=== PATIENT | male | born 1930 ===

== ENCOUNTER 2017-09-27 11:52 | Observation (INO) | payer OTHER ==
[2017-09-27 11:55] VITALS: BMI 25.4
--- NOTE | 2017-09-27 13:43 | CT ---
PROCEDURE: CT HEAD WITHOUT CONTRAST. HISTORY: fall with lac to left forehead COMPARISON: None available. TECHNIQUE: Axial computed tomography images were obtained through the head/brain without intravenous contrast. Radiation dose: Total exam DLP = 799.21 mGy-cm. This CT exam was performed using one or more of the following dose reduction techniques: Automated exposure control, adjustment of the mA and/or kV according to patient size, and/or use of iterative reconstruction technique. FINDINGS: HEMORRHAGE: Although there is no fracture throughout the calvarium or the skullbase including left frontal and temporal bones, hyperdensity at the left frontal subarachnoid or possibly subdural spaces appreciated minimally. Additional hemorrhage is appreciated in a definitive subarachnoid pattern at the mid to posterior left temporoparietal distribution. There is no mass effect at this time. No right-sided intracranial hemorrhage is evident. There is a borderline 2 mm rightward shift although this may be pre-existent to the hemorrhage as there is no definitive edema appreciated by standard CT criteria throughout the left cerebral hemisphere. Basilar cisterns are widely patent. BRAIN: Limited diffuse cerebral atrophy is appreciated with trace periventricular chronic microangiopathy related lucency. Posterior fossa contents appear nonfocal including the brainstem. Corticomedullary differentiation is adequate, diffusely. VENTRICLES: Unremarkable. No hydrocephalus. CALVARIUM: Unremarkable. PARANASAL SINUSES: Unremarkable as visualized. No significant inflammatory changes. MASTOID AIR CELLS: Unremarkable as visualized. No inflammatory changes. OTHER FINDINGS: None. IMPRESSION: Left temporoparietal and trace left frontal subarachnoid hemorrhage is identified with left frontal hemorrhage potentially being subdural though the former is favored. No parenchymal edema is identified. Age-appropriate age related neuro degenerative findings as discussed above. Minimal rightward midline shift may be pre-existing the traumatic event. Follow-up CT is advised. Discussed with Dr. Benz with written down and read back verification, 09/18/2017 1:25 p.m..
[2017-09-27 14:27] LABS: BASO # 0.1 K/uL (0.0-0.2); BASO % 0.7 % (0.0-2.0); EOS # 0.2 K/uL (0.0-0.7); EOS % 1.9 % (0.0-4.0); LYMPH # 0.8 K/uL (1.0-4.3); LYMPH % 9.3 % (20.0-40.0); MEAN CORPUSCULAR HEMOGLOBIN 31.6 pg (27.0-31.0); MEAN CORPUSCULAR HGB CONC 32.6 g/dL (33.0-37.0); MEAN PLATELET VOLUME 10.4 fl (7.2-11.7); MONO # 0.5 K/uL (0.0-0.8); MONO % 5.6 % (0.0-10.0); NEUT # 7.5 K/uL (1.8-7.0); NEUT % 82.5 % (50.0-75.0); PLATELET COUNT 165 K/uL (130-400); RED CELL DISTRIBUTION WIDTH 13.7 % (11.5-14.5); WHITE BLOOD COUNT 9.1 K/uL (4.8-10.8)
--- NOTE | 2017-09-27 14:34 | ED PDOC ---
HPI: Trauma/Fall - HPI Time Seen by Provider: 09/27/17 12:05 Chief Complaint (Nursing): Trauma History Per: Patient (brought by EMS after tripping on someone's cane, fell and hit his head on the left side with resultant superficial laceration on the left forehead. Patient denies LOC. No reports of LoC. Patient also has superficial abrasions on the left elbow and left hand. He is able to move everything without restriction.) Past Medical History Reviewed: Historical Data, Nursing Documentation, Vital Signs Vital Signs: Last Vital Signs Temp 97.8 F 09/27/17 11:55 Pulse 93 H 09/27/17 11:55 Resp 20 09/27/17 11:55 BP 156/77 H 09/27/17 11:55 Pulse Ox 97 09/27/17 11:55 - Medical History PMH: HTN - Family History Family History: States: No Known Family Hx - Living Arrangements Living Arrangements: With Family - Immunization History Hx Tetanus Toxoid Vaccination: No Hx Influenza Vaccination: Yes (2016) Hx Pneumococcal Vaccination: Yes (2016) - Allergies Allergies/Adverse Reactions: Allergies Allergy/AdvReac Type Severity Reaction Status Date / Time iodine Allergy Verified 09/27/17 12:10 Review of Systems ROS Statement: Except As Marked, All Systems Reviewed And Found Negative Constitutional: Negative for: Fever, Chills ENT: Negative for: Ear Discharge, Nose Discharge, Nose Congestion Cardiovascular: Negative for: Chest Pain Respiratory: Negative for: Cough, Shortness of Breath Gastrointestinal: Negative for: Nausea, Vomiting Musculoskeletal: Negative for: Neck Pain, Shoulder Pain, Back Pain Neurological: Negative for: Weakness, Numbness, Incoordination, Change in Speech , Confusion, Seizures, Altered Mental Status, Headache, Dizziness, Other Physical Exam - Reviewed Nursing Documentation Reviewed: Yes Vital Signs Reviewed: Yes - Physical Exam Appears: Positive for: Well, Non-toxic, No Acute Distress Skin: Positive for: Normal Color (superficial lacerations (1.5 cm left forearm, 1.5 cm left forearm)), Warm Eye Exam: Positive for: EOMI, Normal appearance, PERRL ENT: Positive for: Normal ENT Inspection Neck: Positive for: Normal, Painless ROM Cardiovascular/Chest: Positive for: Regular Rate, Rhythm Respiratory: Positive for: CNT, Normal Breath Sounds Gastrointestinal/Abdominal: Positive for: Normal Exam, Soft Back: Positive for: Normal Inspection Extremity: Positive for: Normal ROM Neurologic/Psych: Positive for: Alert, Oriented - Laboratory Results Result Diagrams: 09/27/17 14:18 - ECG O2 Sat by Pulse Oximetry: 97 Medical Decision Making Medical Decision Making: case d/w Dr. Little. Repeat CT in 6-12 hours. will admit for observation on telemetry given patient's age and the extent of external bruising. Patietn of Benoit Vargas. Case d/w Dr. Hilton. Procedures - Laceration/Wound Repair Head Wound's Depth, Shape: superficial Wound Explored: no foreign body removed Betadine Prep?: Yes Wound Debrided: minimal Wound Repaired With: Skin adhesive Wound Complexity: Simple Disposition - Clinical Impression Clinical Impression: Epidural hematoma - Patient ED Disposition Is Patient to be Admitted: Yes Doctor Will See Patient In The: Hospital - Disposition Disposition: Transfer of Care Disposition Time: 14:00 Condition: STABLE - Pt Status Changed To: Hospital Disposition Of: Observation - POA Present On Arrival: Falls Or Trauma
[2017-09-27 15:01] LABS: PARTIAL THROMBOPLASTIN TIME 28.4 Seconds (25.6-37.1); PROTHROMBIN TIME 10.9 Seconds (9.8-13.1)
[2017-09-27 15:24] LABS: ANISOCYTOSIS SLIGHT; EOSINOPHIL 2 % (0-7); LYMPHOCYTE 6 % (20-50); MONOCYTE 7 % (0-10); NEUTROPHIL 85 % (42-75); OVALOCYTES SLIGHT; PLATELET ESTIMATE NORMAL (NORMAL); TEARDROP CELLS SLIGHT; TOTAL CELLS COUNTED 100
--- NOTE | 2017-09-27 15:35 | CP.PCM.HP ---
Addendum entered and electronically signed by Yolanda Pagan MD 09/27/17 16 :34: confirmed with patients : patient takes Metoprolol 50mg PO QD, Telmisartan 40 mg PO QD -denies hx tobacco/Etoh or drugs Original Note: <Yolanda Pagan - Last Filed: 09/27/17 16:18> History of Present Illness - History of Present Illness History of Present Illness: 86 yr old M brought to ED via EMS with complaint of left eyebrow laceration and swellign/bruising after falling in the street. 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 Patient reports he was walking and accidentally tripped over someone elses' cane and hit the concrete sidewalk with the left side of his face. Denies loss of consciousness, chest pain, dizziness, weakness, nausea, vomiting. At baseline patient reports he ambulates without difficulty, has no other complaints. Patient reports he lives in [place] and is scheduled to fly there saturday. PMD: Benoit Strauss PMHx: HTN SurgHx: colon resection for benign colon mass (per patient) FMHx: noncontributory ED course: vital signs stable -CBC, coags and CMP wnl -CT head: left temporoparietal and trace left frontal subarachnoid hemorrhage with left frontal hemorrhage potentially being subdural though the former is favored. Followup CT is advised -case consulted with Neurosurgery: Dr. Little, recommended repeat CT head in 6- 12 hrs Present on Admission - Present on Admission Any Indicators Present on Admission: No History of DVT/PE: No History of Uncontrolled Diabetes: No Urinary Catheter: No Decubitus Ulcer Present: No History Surgical Site Infection Following: None Review of Systems - Constitutional Constitutional: absent: Chills - EENT Eyes: absent: Change in Vision Ears: absent: Ear Pain Nose/Mouth/Throat: absent: Nasal Congestion, Sore Throat - Cardiovascular Cardiovascular: absent: Chest Pain, Syncope - Respiratory Respiratory: absent: Cough, Dyspnea, Hemoptysis - Gastrointestinal Gastrointestinal: absent: Diarrhea, Nausea, Vomiting - Genitourinary Genitourinary: absent: Difficulty Urinating, Dysuria - Musculoskeletal Musculoskeletal: absent: Arthralgias, Back Pain - Integumentary Integumentary: Wounds (left eye laceration, swelling and bruising) - Neurological Neurological: absent: Confusion, Weakness - Psychiatric Psychiatric: absent: Anxiety - Hematologic/Lymphatic Hematologic: absent: Easy Bleeding, Easy Bruising Past Patient History - Past Social History Smoking Status: Never Smoked - CARDIAC Hx Hypertension: Yes - GASTROINTESTINAL Other/Comment: colon ca - PSYCHIATRIC Hx Substance Use: No - SURGICAL HISTORY Other/Comment: colon surgery 12/16 Meds Allergies/Adverse Reactions: Allergies Allergy/AdvReac Type Severity Reaction Status Date / Time iodine Allergy Verified 09/27/17 12:10 Physical Exam - Constitutional Appears: No Acute Distress - Head Exam Head Exam: absent: ATRAUMATIC Additional comments: left forehead superficial laceration-skin adhesive covering - Eye Exam Eye Exam: Periorbital swelling (and bruising-left), Periorbital tenderness. 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 Negative for: Lymphadenopathy - Respiratory Exam Respiratory Exam: Clear to Auscultation Bilateral, NORMAL BREATHING PATTERN - Cardiovascular Exam Cardiovascular Exam: REGULAR RHYTHM, +S1, +S2 - GI/Abdominal Exam GI & Abdominal Exam: Normal Bowel Sounds, Soft (obese). absent: Tenderness - Extremities Exam Extremities exam: Positive for: full ROM, normal capillary refill, pedal pulses present. Negative for: calf tenderness, pedal edema Additional comments: left knee abrasion, no swelling - Neurological Exam Neurological exam: Alert, Oriented x3 - Psychiatric Exam Psychiatric exam: Normal Affect, Normal Mood - Skin Skin Exam: Dry, Warm Results - Vital Signs Recent Vital Signs: Last Vital Signs Temp 97.8 F 09/27/17 11:55 Pulse 93 H 09/27/17 11:55 Resp 20 09/27/17 11:55 BP 156/77 H 09/27/17 11:55 Pulse Ox 97 09/27/17 14:40 - Labs Result Diagrams: 09/27/17 14:18 09/27/17 14:18 Labs: Laboratory Results - last 24 hr 09/27/17 09/27/17 09/27/17 14:18 14:18 14:18 WBC 9.1 RBC 3.80 L Hgb 12.0 Hct 36.9 MCV 97.0 H MCH 31.6 H MCHC 32.6 L RDW 13.7 Plt Count 165 MPV 10.4 Neut % (Auto) 82.5 H Lymph % (Auto) 9.3 L Gosper % (Auto) 5.6 Eos % (Auto) 1.9 Baso % (Auto) 0.7 Neut # (Auto) 7.5 H Lymph # (Auto) 0.8 L Gosper # (Auto) 0.5 Eos # (Auto) 0.2 Baso # (Auto) 0.1 Neutrophils % (Manual) 85 H Lymphocytes % (Manual) 6 L Monocytes % (Manual) 7 Eosinophils % (Manual) 2 Platelet Estimate Normal Anisocytosis (manual) Slight Tear Drop Cells Slight Ovalocytes Slight PT 10.9 INR 1.0 APTT 28.4 Sodium 143 Potassium 3.9 Chloride 108 H Carbon Dioxide 24 Anion Gap 15 BUN 14 Creatinine 0.9 Est GFR ( Amer) > 60 Est GFR (Non-Af Amer) > 60 Random Glucose 104 Calcium 9.1 Total Bilirubin 0.8 AST 32 ALT 20 L Alkaline Phosphatase 95 Total Protein 7.6 Albumin 4.5 Globulin 3.1 Albumin/Globulin Ratio 1.5 Blood Type Antibody Screen BBK History Checked 09/27/17 14:18 WBC RBC Hgb Hct MCV MCH MCHC RDW Plt Count MPV Neut % (Auto) Lymph % (Auto) Gosper % (Auto) Eos % (Auto) Baso % (Auto) Neut # (Auto) Lymph # (Auto) Gosper # (Auto) Eos # (Auto) Baso # (Auto) Neutrophils % (Manual) Lymphocytes % (Manual) Monocytes % (Manual) Eosinophils % (Manual) Platelet Estimate Anisocytosis (manual) Tear Drop Cells Ovalocytes PT INR APTT Sodium Potassium Chloride Carbon Dioxide Anion Gap BUN Creatinine Est GFR ( Amer) Est GFR (Non-Af Amer) Random Glucose Calcium Total Bilirubin AST ALT Alkaline Phosphatase Total Protein Albumin Globulin Albumin/Globulin Ratio Blood Type O POSITIVE Antibody Screen Negative BBK History Checked No verified bt Assessment & Plan - Assessment and Plan (Free Text) Assessment: 86 yr old M admitted for epidural hematoma with hx of HTN. Plan: -admit to telemetry -repeat CT head in 6-12 hrs -neuro checks -heart healthy diet -neurosurgery on consult, will follow recommendations - Date & Time Date: 09/27/17 Time: 16:17 <Nikita Hilton - Last Filed: 09/28/17 12:52> Results - Vital Signs Recent Vital Signs: Last Vital Signs Temp 98.2 F 09/28/17 12:23 Pulse 74 09/28/17 12:23 Resp 18 09/28/17 12:23 BP 161/76 H 09/28/17 12:23 Pulse Ox 97 09/28/17 12:23 - Labs Result Diagrams: 09/27/17 14:18 09/27/17 14:18 Labs: Laboratory Results - last 24 hr 09/27/17 09/27/17 09/27/17 14:18 14:18 14:18 WBC 9.1 RBC 3.80 L Hgb 12.0 Hct 36.9 MCV 97.0 H MCH 31.6 H MCHC 32.6 L RDW 13.7 Plt Count 165 MPV 10.4 Neut % (Auto) 82.5 H Lymph % (Auto) 9.3 L Gosper % (Auto) 5.6 Eos % (Auto) 1.9 Baso % (Auto) 0.7 Neut # (Auto) 7.5 H Lymph # (Auto) 0.8 L Gosper # (Auto) 0.5 Eos # (Auto) 0.2 Baso # (Auto) 0.1 Neutrophils % (Manual) 85 H Lymphocytes % (Manual) 6 L Monocytes % (Manual) 7 Eosinophils % (Manual) 2 Platelet Estimate Normal Anisocytosis (manual) Slight Tear Drop Cells Slight Ovalocytes Slight PT 10.9 INR 1.0 APTT 28.4 Sodium 143 Potassium 3.9 Chloride 108 H Carbon Dioxide 24 Anion Gap 15 BUN 14 Creatinine 0.9 Est GFR ( Amer) > 60 Est GFR (Non-Af Amer) > 60 Random Glucose 104 Calcium 9.1 Total Bilirubin 0.8 AST 32 ALT 20 L Alkaline Phosphatase 95 Total Protein 7.9 Albumin 4.5 Globulin 3.1 Albumin/Globulin Ratio 1.3 Vitamin B12 TSH 3rd Generation Blood Type Blood Type Confirm Antibody Screen BBK History Checked 09/27/17 09/27/17 09/28/17 14:18 16:20 07:10 WBC RBC Hgb Hct MCV MCH MCHC RDW Plt Count MPV Neut % (Auto) Lymph % (Auto) Gosper % (Auto) Eos % (Auto) Baso % (Auto) Neut # (Auto) Lymph # (Auto) Gosper # (Auto) Eos # (Auto) Baso # (Auto) Neutrophils % (Manual) Lymphocytes % (Manual) Monocytes % (Manual) Eosinophils % (Manual) Platelet Estimate Anisocytosis (manual) Tear Drop Cells Ovalocytes PT INR APTT Sodium Potassium Chloride Carbon Dioxide Anion Gap BUN Creatinine Est GFR ( Amer) Est GFR (Non-Af Amer) Random Glucose Calcium Total Bilirubin AST ALT Alkaline Phosphatase Total Protein Albumin Globulin Albumin/Globulin Ratio Vitamin B12 403 TSH 3rd Generation 1.75 Blood Type O POSITIVE Blood Type Confirm O POSITIVE Antibody Screen Negative BBK History Checked No verified bt Assessment & Plan - Assessment and Plan (Free Text) Assessment: Patient was personally seen and examined by me in rounds with residents. Available labs and diagnostic data reviewed. Case, Patient's condition and management plan discussed with residents in rounds. Agree with resident's progress note. Plan: As ordered.
[2017-09-27 16:05] LABS: ALB/GLOB RATIO 1.3 (1.0-2.1); ALBUMIN 4.5 g/dL (3.5-5.0); ALT/SGPT 20 U/L (21-72); AST/SGOT 32 U/L (17-59); BLOOD UREA NITROGEN 14 mg/dl (9-20); CALCIUM 9.1 mg/dL (8.4-10.2); GFR AFRICAN-AMERICAN > 60; GFR NON-AFRICAN AMERICAN > 60
--- NOTE | 2017-09-27 18:43 | CT ---
PROCEDURE: CT HEAD WITHOUT CONTRAST. HISTORY: Acute epidural hematoma COMPARISON: None available. TECHNIQUE: Axial computed tomography images were obtained through the head/brain without intravenous contrast. Radiation dose: Total exam DLP = 766.21 MGy-cm. This CT exam was performed using one or more of the following dose reduction techniques: Automated exposure control, adjustment of the mA and/or kV according to patient size, and/or use of iterative reconstruction technique. FINDINGS: HEMORRHAGE: There is redemonstration of left temporoparietal subarachnoid hemorrhage. No evidence for subdural or epidural hematoma. BRAIN: There is 4 mm midline shift from left to right. No evidence for herniation. There are mild chronic microangiopathic changes. There is no territorial infarction. VENTRICLES: There is mild age-related global parenchymal volume loss and proportionate enlargement of the ventricles and cortical sulci. No hydrocephalus. CALVARIUM: There is no calvarial fracture. There is moderate left periorbital and frontal soft tissue swelling. PARANASAL SINUSES: There is moderate mucoperiosteal thickening in the ethmoid air cells and fluid in the maxillary sinuses. MASTOID AIR CELLS: Predominantly clear. OTHER FINDINGS: None. IMPRESSION: Little interval change in known left temporal parietal subarachnoid hemorrhage. No evidence of subdural or epidural hematoma. No calvarial fracture. 4 mm midline shift from left to right. No herniation or hydrocephalus.
--- NOTE | 2017-09-28 01:04 | CT ---
EXAM: CT Head Without Intravenous Contrast EXAM DATE/TIME: 09/27/2017 11:00 PM CLINICAL HISTORY: 86 years old, male; Injury or trauma; Fall; Follow-up exam; Bleeding / hemorrhage; Injury date: 09-27-2017; Additional info: Follow up at 23: 00 acute epidural hematoma TECHNIQUE: Axial computed tomography images of the head/brain without intravenous contrast. All CT scans at this facility use at least one of these dose optimization techniques: automated exposure control; mA and/or kV adjustment per patient size (includes targeted exams where dose is matched to clinical indication); or iterative reconstruction. Coronal and sagittal reformatted images were created and reviewed. COMPARISON: CT head 09/27 at 18 12:56 PM, CT head 09/27/17 5:02 PM FINDINGS: Brain: There is prominence to of sulci gyri and ventricles. There is no midline shift. There is decreased attenuation in periventricular white matter. There are no focal masses. There is trace residual subarachnoid hemorrhage in the left frontal region. There is trace residual subarachnoid blood in the left temporal region. Subdural or epidural hematoma is identified. Medina-white differentiation is visualized. Ventricles: See above Bones: Cranial vault is intact. Soft tissues: There is left frontal scalp swelling. Sinuses: There is mucoperiosteal thickening in the ethmoid and frontal sinuses. There is mucosal thickening in the maxillary sinuses. There is right medial antrectomy defect There are no acute orbital abnormalities. Ears and mastoids: Middle ears and mastoids are unremarkable. IMPRESSION: Atrophy and small vessel disease; resolving left frontal and left temporal subarachnoid hemorrhage Additional nonemergent findings as described above.
[2017-09-28] MEDS: Metoprolol Succinate 50 mg XL Tab PO SCH (09:53)
--- NOTE | 2017-09-28 10:58 | PN ---
DATE: 09/28/2017 SUBJECTIVE: The patient was seen and examined. Interim events noted. The patient remains in progressive care unit on telemetry monitoring. The patient feels okay. Denies any headache, chest pain, shortness of breath, dizziness, loss of consciousness, any nausea, vomiting or diarrhea. PHYSICAL EXAMINATION: GENERAL: The patient is in no acute distress. VITAL SIGNS: Stable. HEART: S1, S2. Normal and regular. LUNGS: Good bilateral air exchange. ABDOMEN: Soft, nontender. EXTREMITIES: No edema. No calf swelling. No tenderness. No acute ischemia. CENTRAL NERVOUS SYSTEM: The patient is alert, awake, and oriented x3. There is no sign of any acute gross focal, motor, or sensory neurological deficit. DIAGNOSTIC DATA: Available diagnostic data reviewed. Telemetry monitoring does not show significant arrhythmia. CAT scan shows resolving hematoma. IMPRESSION AND PLAN: Overall, the patient is clinically stable and improving. Plan as ordered. Nikita Hilton MD
[2017-09-28 20:51] VITALS: RESP 18
[2017-09-29 07:11] LABS: HEMOGLOBIN 11.4 g/dL (12.0-18.0); MEAN CELL VOLUME 96.4 fl (80.0-94.0); MEAN CORPUSCULAR HEMOGLOBIN 31.5 pg (27.0-31.0); MEAN CORPUSCULAR HGB CONC 32.7 g/dL (33.0-37.0); RBC 3.61 Mil/uL (4.40-5.90); RED CELL DISTRIBUTION WIDTH 13.7 % (11.5-14.5); WHITE BLOOD COUNT 5.2 K/uL (4.8-10.8)
[2017-09-29 07:32] LABS: LDL CHOLESTEROL 46 mg/dL (0-129)
[2017-09-29 08:00] VITALS: BP 159/76; PULSE 80; TEMP 97.3; O2SAT 96
[2017-09-29 08:05] LABS: ALB/GLOB RATIO 1.3 (1.0-2.1); ALBUMIN 3.9 g/dL (3.5-5.0); ALT/SGPT 18 U/L (21-72); AST/SGOT 28 U/L (17-59); BLOOD UREA NITROGEN 10 mg/dl (9-20); CALCIUM 8.9 mg/dL (8.4-10.2); GFR AFRICAN-AMERICAN > 60; GFR NON-AFRICAN AMERICAN > 60; HDL CHOLESTEROL 65 MG/DL (30-70)
[2017-09-29] MEDS: Metoprolol Succinate 50 mg XL Tab PO SCH (08:26)
--- NOTE | 2017-09-29 09:16 | CP.PCM.CON ---
History of Present Illness - History of Present Illness History of Present Illness: Miniscule traumatic SAH L FT region of no clinical significance had rec DC after second unchanged CT Past Patient History - Past Medical History & Family History Past Medical History?: Yes - Past Social History Smoking Status: Never Smoked - CARDIAC Hx Cardiac Disorders: Yes Hx Hypertension: Yes - PULMONARY Hx Respiratory Disorders: No - NEUROLOGICAL Hx Neurological Disorder: No - HEENT Hx HEENT Problems: Yes Hx Glaucoma: Yes - RENAL Hx Chronic Kidney Disease: No - ENDOCRINE/METABOLIC Hx Endocrine Disorders: No - HEMATOLOGICAL/ONCOLOGICAL Hx Blood Disorders: No - INTEGUMENTARY Hx Dermatological Problems: No - MUSCULOSKELETAL/RHEUMATOLOGICAL Hx Musculoskeletal Disorders: No Hx Falls: No - GASTROINTESTINAL Hx Gastrointestinal Disorders: Yes Other/Comment: colon ca - GENITOURINARY/GYNECOLOGICAL Hx Genitourinary Disorders: No - PSYCHIATRIC Hx Psychophysiologic Disorder: No Hx Substance Use: No - SURGICAL HISTORY Hx Surgeries: Yes Other/Comment: colon surgery 12/16 - ANESTHESIA Hx Anesthesia: Yes Hx Anesthesia Reactions: No Hx Malignant Hyperthermia: No Meds Allergies/Adverse Reactions: Allergies Allergy/AdvReac Type Severity Reaction Status Date / Time iodine Allergy Verified 09/27/17 12:10 - Medications Medications: Current Medications Losartan Potassium (Cozaar) 50 mg PO DAILY [facility], 1928–1983 Last Admin: 09/29/17 08:26 Dose: 50 mg Metoprolol Succinate (Toprol Xl) 50 mg PO DAILY [facility]1983 Last Admin: 09/29/17 08:26 Dose: 50 mg Results - Vital Signs Recent Vital Signs: Last Vital Signs Temp 97.3 F L 09/29/17 08:00 Pulse 80 09/29/17 08:26 Resp 18 09/29/17 08:00 BP 159/76 H 09/29/17 08:26 Pulse Ox 96 09/29/17 08:00 - Labs Result Diagrams: 09/29/17 06:20 09/29/17 06:20 Labs: Laboratory Results - last 24 hr 09/28/17 09/29/17 09/29/17 07:10 06:20 06:20 WBC 5.2 RBC 3.61 L Hgb 11.4 L Hct 34.8 L MCV 96.4 H MCH 31.5 H MCHC 32.7 L RDW 13.7 Plt Count 148 Sodium 138 Potassium 4.2 Chloride 101 Carbon Dioxide 26 Anion Gap 15 BUN 10 Creatinine 0.9 Est GFR ( Amer) > 60 Est GFR (Non-Af Amer) > 60 Random Glucose 100 Calcium 8.9 Total Bilirubin 0.9 AST 28 ALT 18 L Alkaline Phosphatase 70 Total Protein 7.0 Albumin 3.9 Globulin 3.1 Albumin/Globulin Ratio 1.3 Triglycerides 98 Cholesterol 145 LDL Cholesterol Direct 46 HDL Cholesterol 65 Vitamin B12 403
--- NOTE | 2017-09-29 15:32 | PN ---
DATE: 09/29/2017 SUBJECTIVE: The patient is seen and examined. Interim events noted. Consults noted and appreciated. Neurosurgery followup and intervention noted and appreciated. The patient remains in progressive care unit on telemetry monitoring. The patient feels okay. Denies any headache, chest pain, shortness of breath, nausea, vomiting, diarrhea, dizziness, loss of consciousness, or fall. PHYSICAL EXAMINATION: GENERAL: The patient is in no acute distress. VITAL SIGNS: Stable. HEART: S1, S2, normal and regular. LUNGS: Good bilateral air exchange. ABDOMEN: Soft, nontender. EXTREMITIES: No edema. No calf swelling. No tenderness. No acute ischemia. REEL ASSEMBLER: Exam is essentially unchanged. SKIN: Superficial bruises without any complications. DIAGNOSTIC DATA: Available diagnostic data reviewed. Telemetry monitoring does not show significant arrhythmias. IMPRESSION AND PLAN: Overall, the patient's general medical condition is stable. Plan as ordered. Nikita Hilton MD cc: MD Esme (Delete if not dictated.)
== END 2017-09-29 10:00 | disposition left against medical advice (07) ==
LOC: H.ER 11:52 → H.ERHOLD 14:25 → H.TEL 18:41
PROVIDERS: ADMIT Internal Medicine; ATTEND Internal Medicine
DX: S06.6X0A Traumatic subarachnoid hemorrhage without loss of consciousness, initial encounter (principal); S01.112A Laceration without foreign body of left eyelid and periocular area, initial encounter; S60.512A Abrasion of left hand, initial encounter; I10 Essential (primary) hypertension; H54.40 Blindness, one eye, unspecified eye; H40.9 Unspecified glaucoma; W01.198A Fall on same level from slipping, tripping and stumbling with subsequent striking against other object, initial encounter; Z85.038 Personal history of other malignant neoplasm of large intestine; Z91.041 Radiographic dye allergy status; Y93.01 Activity, walking, marching and hiking; Y92.480 Sidewalk as the place of occurrence of the external cause
CPT/HCPCS: 36415; 70450; 80053; 80061; 82607; 83036; 84443; 85025; 85027; 85610; 85730; 86850; 86900; 99285; G0378